=== PATIENT | male | born 1965 | race Caucasian/White ===

== ENCOUNTER 2019-04-04 06:24 | Day surgery (SDC) | payer MEDICARE, MEDICAID ==
[~2019-04-04 06:24] MED LIST: ACETAMINOPHEN 1,000 MG/100 ML BTL IVPB ONE; CLINDAMYCIN 600MG/50ML PREMIX 600 MG/50 ML BAG IVPB ONE; FAMOTIDINE 20MG TABLET PO ONE; MECLIZINE 25 MG TABLET PO ONE; METOCLOPRAMIDE 10 MG TABLET PO ONE
[2019-04-04] MEDS ORDERED: LIDOCAINE 2% MDV (20MG/ML) 20ML VIAL IV ONE (06:25)
[2019-04-04] MEDS ORDERED: FENTANYL PF 100MCG/2ML VIAL IV ONE (06:25)
[2019-04-04] MEDS ORDERED: PROPOFOL 10 MG/ML VIAL IV ONE (06:25)
[2019-04-04] MEDS ORDERED: GLYCOPYRROLATE 0.2 MG/ML ML IV ONE (06:25)
[2019-04-04] MEDS ORDERED: Clindamycin 600mg vial 150 MG/ML VIAL IVPB ONE (06:25)
--- NOTE | 2019-04-04 06:28 | History and Physical - [place] ---
CHIEF COMPLAINT/HISTORY OF CHIEF COMPLAINT: This patient with a history of an intractable thoracic radiculopathy has two nonfunctional [employer] stimulators in place with the failure of the current indwelling system he was given the option to remove or replace and he opted to replace. Because of the difference between the older system and the newer system it is felt appropriate for a trial to be performed, this was performed on 03/06/19. The trial resulted in 75+% pain control. Due to the failure of therapy, the failure of the current indwelling system, and the success of the trial he is here for removal and replacement with a [facility] system. PAST MEDICAL HISTORY: Diabetes Type 2, hypertension, and reflux esophagitis. PAST SURGICAL HISTORY: Spinal cord stimulator implant. MEDICATIONS ON ADMISSION: List to be provided. ALLERGIES: ASPIRIN, PENICILLIN, SULFA, AND ANTIDEPRESSANTS. FAMILY/PSYCHOSOCIAL HISTORY: Social history - Caffeine and smoking. Family history - Diabetes. SYSTEMS REVIEW: The patient is appropriate in no acute distress. The remainder of the systems review is positive for headaches, peripheral edema, peripheral neuropathy, sleep disturbance, hypertension, reflux, and depression. PHYSICAL EXAMINATION: Height is 5'9", weight is 200 pounds. No vital signs. HEENT: Within normal limits. LUNGS: Clear. HEART: [place] and regular. ABDOMEN: Nontender. MUSCULOSKELETAL: Examination of the musculoskeletal system shows a diffuse tenderness throughout the thoracic and lumbar spine. Range of motion produces pain throughout the entire area. There is extension along the rib margins and into the hips and legs. The incisional sites for the lumbar stimulators and generator is intact. There is currently no motor or sensory abnormalities across the thoracic spine, lumbar spine or legs. NEUROLOGIC: Cranial nerves are intact. IMPRESSION: 1. THORACIC AND LUMBAR RADICULOPATHY, ICD-10 CODE M54.14 AND M54.16. 2. NONFUNCTIONAL TWO LEAD SPINAL CORD STIMULATOR AND INTERNAL GENERATOR. PLAN: The patient is here for removal and replacement of the system. The procedure will be considered outpatient and an overnight stay will be evaluated. JOB NUMBER: [id number] [facility]
[2019-04-04] MEDS ORDERED: RINGERS SOLUTION,LACTATED 1,000 ML IV ONE (07:30)
[2019-04-04] MEDS ORDERED: 0.9 % SODIUM CHLORIDE 1000ML 1,000 ML IV ONE ×2 (07:30→09:31)
[2019-04-04] MEDS ORDERED: LIDOCAINE 1% W/EPI 1:100,000 MDV 20 ML VIAL SQ ONE ×2 (08:54)
[2019-04-04] MEDS ORDERED: BUPIVACAINE 0.5% W/EPI MPF 30 ML VIAL SQ ONE ×2 (08:54)
[2019-04-04] MEDS ORDERED: CAFFEINE/SODIUM BENZOATE 250MG 500 MG in 0.9 % SODIUM CHLORIDE 100ML 100 ML IVPB ONE ×2 (10:31→16:00)
[2019-04-04] MEDS ORDERED: ALBUTEROL HFA 8 GM INHALER INH PRN (11:44)
[2019-04-04] MEDS ORDERED: DIPHENHYDRAMINE HCL 25 MG CAPSULE PO PRN ×2 (11:45)
[2019-04-04] MEDS ORDERED: ACETAMINOPHEN 325 MG TAB PO PRN ×2 (11:45)
[2019-04-04] MEDS ORDERED: METOCLOPRAMIDE 10 MG TABLET PO PRN (11:45)
[2019-04-04] MEDS ORDERED: AL HYDROX/MAG HYDROX 30ML UD PO PRN (11:45)
[2019-04-04] MEDS ORDERED: HYDROMORPHONE HCL 2 MG/ML VIAL IM PRN ×2 (11:45)
[2019-04-04] MEDS ORDERED: SENNOSIDES/DOCUSATE SODIUM UD CAPSULE PO PRN ×2 (11:45)
[2019-04-04] MEDS ORDERED: OXYCODONE/APAP 10MG-325MG TABLET PO PRN (11:45)
[2019-04-04] MEDS ORDERED: METOCLOPRAMIDE HCL 10 MG/2 ML VIAL IVP PRN (11:45)
[2019-04-04] MEDS ORDERED: TEMAZEPAM 15 MG CAPSULE PO PRN ×2 (11:45)
[2019-04-04] MEDS ORDERED: DIPHENHYDRAMINE HCL 50 MG/ML VIAL IVP PRN ×2 (11:45)
[2019-04-04] MEDS: HUMALOG SC SCH (12:41)
[2019-04-04] MEDS: OXYCODONE/APAP 10MG-325MG TABLET PO PRN ×2 (17:13→22:30)
[2019-04-04] MEDS ORDERED: HUMALOG SC SCH (17:15)
[2019-04-04] MEDS: CLINDAMYCIN 600MG/50ML PREMIX 600 MG/50 ML BAG IVPB SCH (18:50)
[2019-04-04] MEDS ORDERED: 0.9 % SODIUM CHLORIDE 10ML SYR IVP SCH (22:00)
[2019-04-04] MEDS ORDERED: ATROVASTATIN PO SCH (22:00)
[2019-04-04] MEDS ORDERED: NORTRIPTYLINE 75 MG PO SCH (22:00)
[2019-04-04] MEDS ORDERED: NORTRIPTYLINE 50 MG PO SCH (22:00)
[2019-04-04] MEDS: PATIENT OWN MED: GABAPENTIN 600 MG PO SCH (22:37)
[2019-04-04] MEDS: TOPIRAMATE 100 MG PO SCH (22:39)
[2019-04-04] MEDS: BASAGLAR SC SCH (23:40)
[2019-04-05] MEDS: CLINDAMYCIN 600MG/50ML PREMIX 600 MG/50 ML BAG IVPB SCH ×2 (01:43→09:35)
[2019-04-05] MEDS: OXYCODONE/APAP 10MG-325MG TABLET PO PRN ×2 (06:30→12:11)
[2019-04-05] MEDS ORDERED: PATIENT OWN MED: ESOMEPRAZOLE 40 MG PO SCH (07:00)
[2019-04-05] MEDS: HUMALOG SC SCH (08:36)
[2019-04-05] MEDS: BASAGLAR SC SCH (09:43)
[2019-04-05] MEDS: PATIENT OWN MED: GABAPENTIN 600 MG PO SCH (09:48)
[2019-04-05] MEDS: TOPIRAMATE 100 MG PO SCH (09:50)
[2019-04-05] MEDS ORDERED: DULOXETINE 20 MG PO SCH (10:00)
[2019-04-05] MEDS ORDERED: MAGNESIUM 500 MG PO SCH (10:00)
[2019-04-05] MEDS ORDERED: PATIENT OWN MED: LOSARTAN 25 MG PO SCH (10:00)
--- NOTE | 2019-04-06 11:09 | RADIOLOGY REPORT ---
EXAM: THORACOLUMBAR SPINE, ONE VIEW HISTORY: SPINAL CORD STIMULATOR IMPLANT. TECHNIQUE: AP supine portable view of the spine was obtained including the thoracic spine and upper lumbar levels. Comparison: None. FINDINGS: Two intraspinal stimulator leads are in place likely entering the spinal canal at the upper lumbar levels. The lead tips project at the T2-T3 level. Inferiorly they course inferiorly and leftward. They are incompletely imaged. Midline surgical skin faisal are noted at the L1-L2 level. No acute fracture nor destructive bone lesion. Mild degenerative end plate changes. IMPRESSION: TWO INTRASPINAL STIMULATOR LEADS IN PLACE WITH THE LEAD TIPS AT THE T2-T3 LEVEL. JOB NUMBER: [id number] [facility]
--- NOTE | 2019-04-06 20:36 | Operative Note ---
DATE OF SURGERY: 04/04/2019 PREOPERATIVE DIAGNOSES: 1. Intractable thoracic and lumbar radiculopathy ICD 10 code M54.14 and M54.16. 2. Internal implanted spinal cord stimulator x1 with peripheral nerve stimulator x1 and internal generator x1, nonfunctional. OPERATION: 1. Incision and subcutaneous dissection and removal of implanted spinal cord stimulator. 2. Incision and subcutaneous dissection and removal of implanted peripheral nerve stimulator. 3. Incision and subcutaneous dissection and removal of internal pulse generator, left posterior gluteal margin. 4. Fluoroscopic-guided access epidural space T12-L1, placement of spinal cord stimulator lead 1 [employer] In[employer]ion 16 6 electrodes positioned left T2. 5. Fluoroscopic-guided epidural access left T11-12, placement of spinal cord stimulator lead 2 [employer] In[employer]ion 16 6 electrodes positioned right T2. 6. Complex programming of lead 1 over 20 minutes, followed by complex programming of lead 2 over 20 minutes. 7. Incision subcutaneous dissection and anchoring leads 1 and leads 2 to supraspinous fascia with a [employer] locking anchor nonabsorbable suture. 8. Revision of internal pulse generator pouch previously, opened at left posterior gluteal margin, revision to accommodate new generator [employer] programmable rechargeable. 9. Tunneling between midline lead pouch and generator pouch, placement of external portion of lead 1 and lead 2 in the generator pouch, each lead interfaced to the generator. 10. Antibiotic irrigation and Bovie hemostasis at all incisions. After interfacing leads to generator, placement of generator pouch, closure of all incisions using Vicryl for fascia and faisal for skin. 11. Complex programming internal generator, 2 epidural stimulators, recovery room 20 minutes. SURGEON: Johnnie Winter D.O. ANESTHESIA: Local sedation. ANESTHESIA PROVIDER: JOHN Boyle CRNA INDICATION: This patient presents with a history of intractable thoracic and lumbar radiculopathy. A number of years previous, a peripheral stimulator and a single epidural DICTATION ENDS HERE MTDD
--- NOTE | 2019-04-13 15:15 | Operative Note ---
DATE: 04/04/2019. PREOPERATIVE DIAGNOSIS: 1. INTRACTABLE THORACIC AND LUMBAR RADICULOPATHY, ICD-10 CODE M54.14 AND M54.16. 2. INTERNAL IMPLANTED SPINAL CORD STIMULATOR X 1 WITH PERIPHERAL NERVE STIMULATOR X 1 AND INTERNAL GENERATOR X 1 NONFUNCTIONAL. POSTOPERATIVE DIAGNOSIS: 1. INTRACTABLE THORACIC AND LUMBAR RADICULOPATHY, ICD-10 CODE M54.14 AND M54.16. 2. INTERNAL IMPLANTED SPINAL CORD STIMULATOR X 1 WITH PERIPHERAL NERVE STIMULATOR X 1 AND INTERNAL GENERATOR X 1 NONFUNCTIONAL. PROCEDURES: 1. Incision, subcutaneous dissection, and removal of implanted spinal cord stimulator. 2. Incision, subcutaneous dissection, and removal of implanted peripheral nerve stimulator. 3. Incision, subcutaneous dissection, and removal of internal pulse generator at the left posterior gluteal margin. 4. Fluoroscopically guided access, epidural space at T12-L1. Placement of spinal cord stimulator lead 1, a [employer] Infinion 16 with 16 electrodes positioned at left T2. 5. Fluoroscopically guided epidural access left T11-12. Placement of spinal cord stimulator lead 2, a [employer] Infinion 16 with 16 electrodes, positioned right T2. 6. Complex programming of lead 1 over 20 minutes followed by complex programming of lead 2 over 20 minutes. 7. Incision, subcutaneous dissection, and anchoring of lead 1 and lead 2 to the supraspinous fascia with [employer] locking anchor and nonabsorbable suture. 8. Revision of internal pulse generator pouch previously placed at left posterior gluteal margin. Revision to accommodate new generator, a [employer] programmable, rechargeable generator. 9. Tunneling between midline lead pouch and generator pouch. Placement of external portion of lead 1 and lead 2 into generator pouch, each lead interfaced to generator. 10. Antibiotic irrigation and Bovie for hemostasis at all incisions after interfacing leads to generator. Placement of generator pouch. Closure of all incisions using Vicryl for the fascia and faisal for the skin. 11. Complex programming of internal generator, two epidural stimulators, in the recovery room over 20 minutes. SURGEON: Johnnie Winter D.O. ANESTHESIA: Local sedation. ANESTHESIA PROVIDER: Zoe Boyle CRNA. INDICATIONS: This patient presents with a history of intractable thoracic and lumbar radiculopathy. A number of years previously, a peripheral stimulator and a single epidural stimulator had been implanted with the generator which appeared to be functional. Over a number of years, this patient began experiencing malfunction of the system. Within the last year he was evaluated and it was found that the system was nonfunctional. The generator was depleted and nonfunctional. at that time he was given the options to remove or remove and replace. He opted to remove with implantation of two [employer] epidural stimulators and generator. DESCRIPTION OF PROCEDURE: Intravenous line, vital sign monitoring, and intravenous sedation. Prepped and draped with sterile technique. The patient was positioned on the operating room table prone. Sterile prep and sterile technique. The area of the previously placed epidural lead to the left of the midline on the left side was infiltrated. An incision was made and subcutaneous dissection was conducted to the lead and the anchor. The anchor and sutures were cut, and the epidural lead and eight electrodes were removed and were intact. The peripheral nerve stimulator incision was marked and infiltrated. An incision was made and subcutaneous dissection was conducted to the lead and its anchoring suture. The lead was removed intact. The generator interfacing these two leads at the left posterior gluteal margin was infiltrated. An incision was made and subcutaneous dissection was conducted to the generator pouch. The pouch was opened, and the generator was exteriorized. The connection to the two previously leads was also removed. Antibiotic irrigation and Bovie for hemostasis. At T12-L1 and 11-12 on the left, the skin was infiltrated. Using two curved access Epimed needles with loss of resistance, the space was accessed. At 12-1, spinal cord stimulator lead 1, a [employer] Infinion 16 with 16 electrodes, was positioned left of the midline at T2. With the access at 11-12, the same technique was performed. Spinal cord stimulators lead 2, a [employer] Infinion 16 with 16 electrodes, was advanced and positioned right of the midline at T2. At the 11-12 interface, fluid was noted. A dural puncture could not be ruled out. A prophylactic measure will be taken. With T1 and T2 demonstrating under imaging both left and right leads, upper electrode, complex programming of the system was performed over 20 minutes, establishing stimulation and pain control to all of the appropriate areas. The patient indicated that we had stimulation across his thoracic and lumbar areas and moving into his legs. He was given the options to implant, remove, or continue to program, and he opted to implant. The questions were repeated with the same response. He was re-sedated. The skin above and below both needles was infiltrated. An incision was made and subcutaneous dissection was conducted to the insertion points. The needles were removed, and each lead was anchored to the supraspinous fascia with a [employer] locking anchor and nonabsorbable suture. The generator pouch at the left posterior gluteal margin which had been previously opened was now modified and revised to accommodate a new generator, a [employer] programmable, rechargeable generator. Antibiotic irrigation and Bovie for hemostasis. A tunneling tool was used to carry the leads into the generator pouch. The generator was placed onto the field and was then interfaced to the leads. The generator was placed into the pouch and was secured to the posterior fascia. The leads were placed into their pouch. All incisions were then closed using Vicryl for the fascia and faisal for the skin. He tolerated the procedure without difficulty. He was transported to the recovery room stable with no side effects from the procedure or the sedation. In the recovery room a caffeine IV solution was run as a prophylactic measure to prevent a headache. He will be kept flat for four hours and the slowly elevated for one hour, and the caffeine infusion will be repeated. He will be kept overnight for observation and will be discharged in the morning. DISCHARGE INSTRUCTIONS: 1. The sites are to remain clean and dry. No showering or bathing in any way that would disrupt dressings. If this happens, contact the clinic. 2. Standard medications to be resumed including the antibiotic Levaquin 500 mg once a day for 14 days. 3. The office will contact the patient once he is discharged to home to set up a time in seven to ten days so we may evaluate the incisions. Until then he is to keep the sites clean and dry. 4. All other instructions were provided including numbers to contact with problems. He will be seen back in the office. JOB NUMBER: [id number] [facility]
== END 2019-04-05 12:27 | disposition home or self-care (01) ==
LOC: SUR 06:24 → MEDSURG 10:43 → SUR 04-05 12:27
PROVIDERS: ATTEND Pain Medicine Interventional Pain Medicine
DX: M54.14 Radiculopathy, thoracic region (principal); M54.16 Radiculopathy, lumbar region; E11.9 Type 2 diabetes mellitus without complications; Z79.4 Long term (current) use of insulin; E78.00 Pure hypercholesterolemia, unspecified; I10 Essential (primary) hypertension; Z79.01 Long term (current) use of anticoagulants; G62.9 Polyneuropathy, unspecified; N18.9 Chronic kidney disease, unspecified; G47.33 Obstructive sleep apnea (adult) (pediatric)
CPT/HCPCS: 63650; 63685; 01922; 95972; 36416; 82948; 85002; 72020; 93005 ×2; J3010; J1170; J3490; C1820; C1883; J7030; J7120